=== PATIENT | female | born 1985 | race Caucasian/White ===

== ENCOUNTER → 2017-02-04 | Outpatient (CLI) | payer OTHER ==
[~2017-02-04] MED LIST: ANUS2.5C2 PR; DOCU10CA PO; MILKSUS PO; MOTR200T44 PO; MULTTAB20 PO; PRENTAB7 PO; TYLE167L PO
[2017-02-04 15:34] LABS: FREE T4 0.98 NG/DL (0.76-1.46)
== END ==
LOC: M SMT 09:58
PROVIDERS: ATTEND Obstetrics & Gynecology
DX: N92.0 Excessive and frequent menstruation with regular cycle (principal)

== ENCOUNTER → 2017-10-29 | Outpatient (CLI) | payer OTHER ==
[2017-10-29 11:55] LABS: HEMATOCRIT 38.5 % (36.0-47.0); HEMOGLOBIN 13.1 g/dl (12.0-16.0); MEAN CORPUSCULAR HEMOGLOBIN 31.5 pg (27.0-33.0); MEAN CORPUSCULAR VOLUME 92.5 fl (80.0-96.0); PLATELET COUNT, AUTOMATED 215 10^3/uL (150-450); RED BLOOD COUNT 4.16 10^6/uL (4.00-5.40); RED CELL DISTRIBUTION WIDTH 12.6 % (11.5-14.5); WHITE BLOOD COUNT 4.6 10^3/uL (4.0-10.0)
[2017-10-29 12:29] LABS: ALBUMIN 4.1 GM/DL (3.2-5.2); ALBUMIN/GLOBULIN RATIO 1.08 (1.00-1.93); ALKALINE PHOSPHATASE 72 U/L (45-117); ALT/SGPT 20 U/L (12-78); ANION GAP 6 MEQ/L (8-16); AST/SGOT 16 U/L (7-37); BILIRUBIN,TOTAL 0.5 MG/DL (0.2-1.0); BLOOD UREA NITROGEN 12 MG/DL (7-18); CALCIUM LEVEL 8.7 MG/DL (8.5-10.1); CARBON DIOXIDE LEVEL 28 MEQ/L (21-32); CHLORIDE LEVEL 109 MEQ/L (98-107); CHOLESTEROL LEVEL 156 MG/DL (<200); CHOLESTEROL RISK RATIO 2.689 (<5); CREATININE FOR GFR 0.71 MG/DL (0.55-1.30); GLOMERULAR FILTRATION RATE > 60.0 (>60); GLUCOSE, FASTING 91 MG/DL (70-100); HDL CHOLESTEROL 58 MG/DL (>40); IRON (FE) 67 UG/DL (50-170); LDL CHOLESTEROL 90.8 MG/DL (<100); NON-HDL-C 98 MG/DL; PERCENT SATURATION 16.8 % (13.2-45.0); POTASSIUM SERUM 4.2 MEQ/L (3.5-5.1); SODIUM LEVEL 143 MEQ/L (136-145); THYROID STIMULATING HORMONE 0.741 uIU/ML (0.358-3.740); TOTAL IRON BINDING CAPACITY 398 UG/DL (250-450); TOTAL PROTEIN 7.9 GM/DL (6.4-8.2); TRIGLYCERIDES LEVEL 36 MG/DL (<150)
[2017-10-29 12:41] LABS: TOTAL 25(OH) VITAMIN D 38.5 NG/ML (30.0-100.0)
== END ==
LOC: M LAB 11:13
DX: D64.9 Anemia, unspecified (principal); R53.83 Other fatigue; E03.9 Hypothyroidism, unspecified

== ENCOUNTER → 2018-08-23 | Outpatient (REF) | payer OTHER ==
[~2018-08-23] MED LIST changes: +MILK120011 PO; -MILKSUS PO
== END ==
LOC: M LAB REF 10:41
PROVIDERS: ATTEND Physician Assistant
DX: J02.9 Acute pharyngitis, unspecified (principal)

== ENCOUNTER → 2018-09-14 | Outpatient (REF) | payer OTHER | LOC: M SFHCLERA 15:32 | PROVIDERS: ATTEND Physician Assistant | DX: J02.9 Acute pharyngitis, unspecified (principal) ==

== ENCOUNTER → 2018-09-29 | Outpatient (REF) | payer OTHER ==
[2018-10-02 14:17] LABS: HPV HYBRID CAPTURE II Negative (Negative)
== END ==
LOC: M LAB REF 18:12
PROVIDERS: ATTEND Obstetrics & Gynecology
DX: Z12.4 Encounter for screening for malignant neoplasm of cervix (principal); Z11.51 Encounter for screening for human papillomavirus (HPV)
CPT/HCPCS: 87624; G0123

== ENCOUNTER → 2019-06-18 | Outpatient (REF) | payer OTHER ==
[2019-06-21 15:26] LABS: CHLAMYDIA DNA AMPLIFICATION NEGATIVE (NEGATIVE); GC DNA AMPLIFICATION NEGATIVE (NEGATIVE)
== END ==
LOC: M LAB REF 13:34
PROVIDERS: ATTEND Obstetrics & Gynecology
DX: Z11.3 Encounter for screening for infections with a predominantly sexual mode of transmission (principal)

== ENCOUNTER → 2020-06-02 | Outpatient (REF) | payer OTHER | LOC: M PLALAB 16:32 | PROVIDERS: ATTEND Obstetrics & Gynecology | DX: Z12.4 Encounter for screening for malignant neoplasm of cervix (principal) | CPT/HCPCS: 88305; G0123 ==

== ENCOUNTER → 2020-08-02 | Outpatient (CLI) | payer OTHER ==
--- NOTE | 2020-08-02 08:30 | REP ---
INDICATION: N93.9 AUB COMPARISON: None. TECHNIQUE: Transabdominal pelvic ultrasound followed by transvaginal examination for better evaluation of the endometrium and adnexa with color Doppler evaluation of the ovaries. FINDINGS: Bladder is unremarkable and measures approximately 12.8 x 12.8 x 7.6 cm. Heterogeneous retroverted uterus measures 8.3 x 4.4 x 6.0 cm. The endometrial complex measures 7.7 mm thickness excluding a small amount of endocervical fluid. No discrete uterine or endometrial abnormalities are appreciated. Bilateral ovaries are normal in vascularity without evidence for torsion. Right ovary measures 5.0 x 1.7 x 2.1 cm and includes 1.8 x 1.5 x 1.3 cm presumed physiologic cyst/dominant follicle; R I = 0.42. Left ovary measures 2.3 x 1.8 x 1.7 cm; R I = 0.53. Trace pelvic free fluid is nonspecific and likely physiologic. IMPRESSION: Heterogeneous retroverted uterus with small amount of endocervical fluid and suspected dominant follicle in the right ovary likely physiologic and related to menstrual cycle <Electronically signed by Aman Mas > 08/02/20 [id number]
== END ==
LOC: M WHC 06:59
PROVIDERS: ATTEND Obstetrics & Gynecology
DX: N93.9 Abnormal uterine and vaginal bleeding, unspecified (principal)

== ENCOUNTER → 2021-02-13 | Outpatient (REF) | payer OTHER | LOC: M LAB REF 11:10 → M WUC 11:10 | PROVIDERS: ATTEND Physician Assistant | DX: M54.5 Low back pain (principal) ==

== ENCOUNTER → 2021-03-08 | Outpatient (REF) | payer OTHER | LOC: M LAB REF 10:54 | PROVIDERS: ATTEND Physician Assistant | DX: J00 Acute nasopharyngitis [common cold] (principal) ==

== ENCOUNTER → 2021-11-06 | Outpatient (REF) | payer OTHER | LOC: M SFHCWAGY 09:53 | PROVIDERS: ATTEND Obstetrics & Gynecology | DX: Z01.419 Encounter for gynecological examination (general) (routine) without abnormal findings (principal); Z77.9 Other contact with and (suspected) exposures hazardous to health; Z12.4 Encounter for screening for malignant neoplasm of cervix ==

== ENCOUNTER → 2021-12-10 | Outpatient (REF) | payer OTHER | LOC: M WUC 09:28 | PROVIDERS: ATTEND Physician Assistant | DX: J02.9 Acute pharyngitis, unspecified (principal) ==

== ENCOUNTER → 2022-02-20 | Outpatient (CLI) | payer OTHER | LOC: M LABSMTC 09:37 | PROVIDERS: ATTEND Anesthesiology | DX: Z01.818 Encounter for other preprocedural examination (principal); Z11.52 Encounter for screening for COVID-19 ==

== ENCOUNTER 2022-02-25 06:08 | Day surgery (SDC) | payer OTHER ==
[~2022-02-25] VITALS: Ht 165.1 cm; Wt 69.4 kg
[~2022-02-25 06:08] MED LIST changes: +ceFAZolin SOD 2 GM in IV 1 EA IV ONE
[2022-02-25] MEDS ORDERED: LR 1,000 ML IV SCH ×2 (06:15→09:55)
[2022-02-25 06:36] LABS: HEMATOCRIT 37.1 % (36.0-47.0); HEMOGLOBIN 12.7 g/dl (12.0-15.5); MEAN CORPUSCULAR HEMOGLOBIN 32.3 pg (27.0-33.0); MEAN CORPUSCULAR HGB CONC 34.2 g/dl (32.0-36.5); MEAN CORPUSCULAR VOLUME 94.4 fl (80.0-96.0); PLATELET COUNT, AUTOMATED 255 10^3/uL (150-450); RED BLOOD COUNT 3.93 10^6/uL (4.00-5.40); WHITE BLOOD COUNT 5.9 10^3/uL (4.0-10.0)
[2022-02-25] MEDS ORDERED: METHYLENE BLUE 0.5% (5MG/ML) 10 ML AMP (PROVAYBLUE) As Ordered ONE (07:14)
[2022-02-25] MEDS ORDERED: BUPIVACAINE HCL 0.25% 30ML VIAL As Ordered ONE (07:14)
[2022-02-25] MEDS ORDERED: LIDOCAINE 2% INJ 100 MG/5 ML SYRINGE As Ordered ONE (07:59)
[2022-02-25] MEDS ORDERED: ACETAMINOPHEN 1000MG 100ML IV BTL (OFIRMEV) (J0131 PER 10MG) As Ordered ONE (07:59)
[2022-02-25] MEDS ORDERED: fentaNYL 100 MCG/2 ML INJECTION As Ordered ONE ×2 (07:59→08:10)
[2022-02-25] MEDS ORDERED: ROCURONIUM BROMIDE 50 MG/5 ML VIAL As Ordered ONE ×2 (07:59→09:02)
[2022-02-25] MEDS ORDERED: dexameTHASONE 4 MG/ML 1ML VIAL (J1100 PER 1MG) As Ordered ONE (07:59)
[2022-02-25] MEDS ORDERED: MIDAZOLAM INJ 2MG/2ML VIAL (J2250 PER 1MG) As Ordered ONE (07:59)
[2022-02-25] MEDS ORDERED: propofoL 200 MG/20 ML VIAL As Ordered ONE (07:59)
[2022-02-25] MEDS ORDERED: ONDANSETRON 4MG 2ML VIAL As Ordered ONE (07:59)
[2022-02-25] MEDS ORDERED: SUGAMMADEX SODIUM 500 MG/5 ML VIAL (BRIDION) As Ordered ONE (08:08)
[2022-02-25] MEDS ORDERED: KETOROLAC 60MG 2ML VIAL As Ordered ONE (09:40)
[2022-02-25] MEDS ORDERED: fentaNYL 100 MCG/2 ML INJECTION IV PRN (09:55)
[2022-02-25] MEDS ORDERED: ONDANSETRON 4MG 2ML VIAL IV PRN (09:55)
[2022-02-25] MEDS ORDERED: HYDROMORPHONE HCL 0.5 MG/ 0.5 ML SYRINGE (J1170 PER 1) IV PRN (09:55)
[2022-02-25] MEDS ORDERED: PERCOCET 5MG/325MG TAB PO PRN (10:40)
[2022-02-25] MEDS: oxyCODONE 5MG TAB PO PRN ×2 (10:58→12:16)
[2022-02-25] MEDS ORDERED: oxyCODONE 5MG TAB As Ordered ONE (12:14)
[2022-02-25 14:00] VITALS: BP 117/63
[2022-02-25] MEDS ORDERED: KETOROLAC 30 MG/ML 1ML VIAL IV SCH (16:00)
== END 2022-02-25 14:40 | disposition home or self-care (01) ==
LOC: M SDC 06:08
PROVIDERS: ATTEND Obstetrics & Gynecology
DX: N93.9 Abnormal uterine and vaginal bleeding, unspecified (principal); N84.0 Polyp of corpus uteri; N39.3 Stress incontinence (female) (male)
CPT/HCPCS: 36415; 57288; 58571; 85027; 86850; 86900; 86901; 88307; C1771; J0131; J0690; J1100; J1885; J2250; J2405; J3010; Q9968; S2900

== ENCOUNTER → 2022-03-05 | Outpatient (REF) | payer OTHER ==
[~2022-03-05] MED LIST changes: -ceFAZolin SOD 2 GM in IV 1 EA IV ONE
== END ==
LOC: M WUC 20:31
PROVIDERS: ATTEND Physician Assistant
DX: J02.9 Acute pharyngitis, unspecified (principal); R50.9 Fever, unspecified; Z20.828 Contact with and (suspected) exposure to other viral communicable diseases

== ENCOUNTER 2022-04-18 22:48 | Day surgery (SDC) | payer OTHER ==
[~2022-04-18] VITALS: Ht 165.1 cm; Wt 75.0 kg
[2022-04-18] MEDS ORDERED: NS 1,000 ML IV ONE (23:15)
[2022-04-18] MEDS ORDERED: MORPHINE 4 MG/ML 1ML VIAL/SYRINGE IV ONE (23:15)
[2022-04-18] MEDS ORDERED: AMPICILLIN SOD/SULBACTAM SOD 3 GM in D5W MINI-BAG PLUS 100 ML IV ONE (23:50)
[2022-04-18] MEDS ORDERED: ONDANSETRON 4MG 2ML VIAL IV ONE (23:55)
[2022-04-18 23:58] LABS: BASO % 0.6 % (0.0-1.0); EOS # 0.2 10^3/uL (0.0-0.5); EOS % 2.2 % (0.0-3.0); HEMATOCRIT 33.5 % (36.0-47.0); HEMOGLOBIN 11.2 g/dl (12.0-15.5); LYMPH # 1.9 10^3/uL (1.5-5.0); LYMPH % 28.4 % (24.0-44.0); MEAN CORPUSCULAR HEMOGLOBIN 32.2 pg (27.0-33.0); MEAN CORPUSCULAR HGB CONC 33.4 g/dl (32.0-36.5); MEAN CORPUSCULAR VOLUME 96.3 fl (80.0-96.0); MONO # 0.4 10^3/uL (0.0-0.8); MONO % 5.6 % (2.0-8.0); NEUTROPHILS # 4.2 10^3/uL (1.5-8.5); NEUTROPHILS % 62.9 % (36.0-66.0); PLATELET COUNT, AUTOMATED 191 10^3/uL (150-450); RED BLOOD COUNT 3.48 10^6/uL (4.00-5.40); WHITE BLOOD COUNT 6.7 10^3/uL (4.0-10.0)
[2022-04-19] VITALS (7 sets, daily range): BP systolic 96–115; BP diastolic 55–64
[2022-04-19] MEDS ORDERED: ESTROGENS VAGINAL CREAM 30GM As Ordered ONE (00:05)
[2022-04-19] MEDS ORDERED: LIDOCAINE W/EPINEPHRINE 1% 20ML VIAL As Ordered ONE (00:05)
[2022-04-19] MEDS ORDERED: fentaNYL 100 MCG/2 ML INJECTION As Ordered ONE ×2 (00:19→01:04)
[2022-04-19] MEDS ORDERED: ROCURONIUM BROMIDE 50 MG/5 ML VIAL As Ordered ONE (00:20)
[2022-04-19] MEDS ORDERED: propofoL 200 MG/20 ML VIAL As Ordered ONE (00:20)
[2022-04-19] MEDS ORDERED: MIDAZOLAM INJ 2MG/2ML VIAL (J2250 PER 1MG) As Ordered ONE (00:20)
[2022-04-19] MEDS ORDERED: LIDOCAINE 2% 100MG/5ML SDV (FOR ANES.) As Ordered ONE (00:20)
[2022-04-19] MEDS ORDERED: ONDANSETRON 4MG 2ML VIAL As Ordered ONE (00:20)
[2022-04-19] MEDS ORDERED: dexameTHASONE 4 MG/ML 1ML VIAL (J1100 PER 1MG) As Ordered ONE (00:20)
[2022-04-19 00:26] LABS: RSV AMPLIFICATION NEGATIVE (NEGATIVE)
[2022-04-19] MEDS ORDERED: ACETAMINOPHEN 1000MG 100ML IV BTL (OFIRMEV) (J0131 PER 10MG) As Ordered ONE (00:53)
[2022-04-19] MEDS ORDERED: KETOROLAC 60MG 2ML VIAL As Ordered ONE ×2 (00:55→00:58)
[2022-04-19] MEDS ORDERED: SUGAMMADEX SODIUM 500 MG/5 ML VIAL (BRIDION) As Ordered ONE (00:55)
[2022-04-19] MEDS ORDERED: SUCCINYLCHOLINE 100 MG/5 ML SYRINGE (J0330) As Ordered ONE (01:04)
[2022-04-19] MEDS ORDERED: ePHEDrine SULFATE 25 MG/5 ML(5MG/ML) SYRINGE As Ordered ONE (01:06)
[2022-04-19] MEDS ORDERED: METOCLOPRAMIDE INJ 10MG/2ML VIAL (J2765 PER 1) As Ordered ONE (01:09)
[2022-04-19] MEDS ORDERED: METHYLENE BLUE 0.5% (5MG/ML) 10 ML AMP (PROVAYBLUE) As Ordered ONE (01:27)
[2022-04-19] MEDS ORDERED: LR 1,000 ML IV SCH ×2 (01:45→02:25)
[2022-04-19] MEDS ORDERED: PERCOCET 5MG/325MG TAB PO PRN (01:45)
[2022-04-19] MEDS ORDERED: ONDANSETRON 4MG 2ML VIAL IV PRN (01:45)
[2022-04-19] MEDS ORDERED: fentaNYL 100 MCG/2 ML INJECTION IV PRN (01:45)
[2022-04-19] MEDS ORDERED: MORPHINE 2 MG/ML 1ML VIAL IV PRN (01:45)
[2022-04-19] MEDS ORDERED: MORPHINE 10 MG/ML 1ML VIAL IV PRN (02:25)
[2022-04-19] MEDS: KETOROLAC 30 MG/ML 1ML VIAL IV SCH ×2 (03:00→14:20)
[2022-04-19] MEDS ORDERED: KETOROLAC 30 MG/ML 1ML VIAL As Ordered ONE (03:06)
[2022-04-19 08:30] LABS: ALBUMIN 3.3 GM/DL (3.2-5.2); ALT/SGPT 13 U/L (12-78); BILIRUBIN,TOTAL 0.4 MG/DL (0.2-1.0); BLOOD UREA NITROGEN 10 MG/DL (7-18); CALCIUM LEVEL 8.7 MG/DL (8.5-10.1); CARBON DIOXIDE LEVEL 25 MEQ/L (21-32); CHLORIDE LEVEL 108 MEQ/L (98-107); CREATININE FOR GFR 0.76 MG/DL (0.55-1.30); GLOMERULAR FILTRATION RATE > 60.0 (>60); GLUCOSE, FASTING 164 MG/DL (70-100); POTASSIUM SERUM 4.5 MEQ/L (3.5-5.1); SODIUM LEVEL 137 MEQ/L (136-145); TOTAL PROTEIN 6.5 GM/DL (6.4-8.2)
[2022-04-19] MEDS ORDERED: LevoFLOXacin IV 750 MG in IV 1 EA IV SCH (09:00)
[2022-04-19] MEDS ORDERED: metroNIDAZOLE 500 MG in IV 1 EA IV SCH (11:00)
[2022-04-19] MEDS ORDERED: SIMETHICONE 80MG CHEW TAB PO PRN (12:20)
[2022-04-19] MEDS ORDERED: SIMETHICONE 40MG/0.6ML DROPS 30ML PO SCH (13:00)
[2022-04-19] MEDS ORDERED: ACET-683 PO (15:00)
[2022-04-19] MEDS ORDERED: IBUP-1022 PO (15:00)
== END 2022-04-19 16:30 | disposition home or self-care (01) ==
LOC: M ED 22:48 → EDBD 22:48 → M SDC 23:50 → M OBS 04-19 03:06 → M SDC 04-19 16:30
PROVIDERS: ATTEND Obstetrics & Gynecology
DX: T81.32XA Disruption of internal operation (surgical) wound, not elsewhere classified, initial encounter (principal); Y81.3 Surgical instruments, materials and general- and plastic-surgery devices (including sutures) associated with adverse incidents
CPT/HCPCS: 13160; 36415; 80053; 85025; 86850; 86900; 86901; 87631; 96365; 96375; 96376; 99284; J0131; J0295; J0330; J1100; J1885; J1956; J2250; J2270; J2405; J2765; J3010; Q9968

== ENCOUNTER → 2022-08-22 | Outpatient (CLI) | payer OTHER ==
[~2022-08-22] MED LIST changes: +ACET-683 PO; +IBUP-1022 PO
== END ==
LOC: M WHC 12:57
PROVIDERS: ATTEND Obstetrics & Gynecology
DX: N63.0 Unspecified lump in unspecified breast (principal); N64.4 Mastodynia

== ENCOUNTER → 2022-09-03 | Outpatient (CLI) | payer OTHER | LOC: M WHC 08:08 | PROVIDERS: ATTEND Obstetrics & Gynecology | DX: N63.0 Unspecified lump in unspecified breast (principal); N64.4 Mastodynia ==

== ENCOUNTER → 2023-07-17 | Outpatient (CLI) | payer OTHER | LOC: M RAD 12:15 | PROVIDERS: ATTEND Physician Assistant Medical | DX: M54.2 Cervicalgia (principal) ==

== ENCOUNTER → 2023-07-17 | Outpatient (CLI) | payer OTHER ==
[2023-07-17 13:59] LABS: HEMATOCRIT 39.5 % (36.0-47.0); HEMOGLOBIN 13.5 g/dl (12.0-15.5); MEAN CORPUSCULAR HEMOGLOBIN 32.5 pg (27.0-33.0); MEAN CORPUSCULAR HGB CONC 34.2 g/dl (32.0-36.5); MEAN CORPUSCULAR VOLUME 95.2 fl (80.0-96.0); PLATELET COUNT, AUTOMATED 267 10^3/uL (150-450); RED BLOOD COUNT 4.15 10^6/uL (4.00-5.40); WHITE BLOOD COUNT 5.5 10^3/uL (4.0-10.0)
[2023-07-17 14:12] LABS: HEMOGLOBIN A1c 4.8 % (4.0-6.0)
[2023-07-17 14:24] LABS: CHOLESTEROL LEVEL 200 MG/DL (<200); CHOLESTEROL RISK RATIO 2.58 (<5); HDL CHOLESTEROL 77.5 MG/DL (>40); LDL CHOLESTEROL 111.9 MG/DL (<100); NON-HDL-C 122.5 MG/DL; TRIGLYCERIDES LEVEL 53 MG/DL (<150)
[2023-07-17 14:25] LABS: RHEUMATOID FACTOR QUANT < 3.5 IU/ML (<14); THYROID STIMULATING HORMONE 0.816 uIU/ML (0.55-4.78)
[2023-07-17 14:26] LABS: TOTAL 25(OH) VITAMIN D 31.2 NG/ML (20.0-100.0)
[2023-07-17 14:52] LABS: ERYTHROCYTE SEDIMENTATION RATE 14 mm/hr (0-20)
== END ==
LOC: M LAB 12:19
PROVIDERS: ATTEND Family Medicine
DX: D64.9 Anemia, unspecified (principal); R53.83 Other fatigue; E03.9 Hypothyroidism, unspecified

== ENCOUNTER → 2023-10-21 | Outpatient (CLI) | payer OTHER ==
[~2023-10-21] MED LIST changes: +HYDR-3363 PO; +PEPC1TAB5 PO
[2023-10-21 17:06] LABS: BLOOD UREA NITROGEN 18 MG/DL (9-23); CREATININE FOR GFR 0.67 MG/DL (0.55-1.30); GLOMERULAR FILTRATION RATE > 60.0 (>60)
== END ==
LOC: M LAB 16:17
PROVIDERS: ATTEND Physician Assistant
DX: G54.0 Brachial plexus disorders (principal)

== ENCOUNTER 2023-10-22 21:07 | Emergency (ER) | payer OTHER ==
[~2023-10-22] VITALS: Ht 165.1 cm; Wt 76.2 kg
[~2023-10-22 21:07] MED LIST changes: -HYDR-3363 PO; -PEPC1TAB5 PO
[2023-10-22 22:15] LABS: BASO % 0.5 % (0.0-1.0); EOS # 0.2 10^3/uL (0.0-0.5); EOS % 2.2 % (0.0-3.0); HEMATOCRIT 36.2 % (36.0-47.0); HEMOGLOBIN 12.9 g/dl (12.0-15.5); LYMPH # 3.1 10^3/uL (1.5-5.0); LYMPH % 40.8 % (24.0-44.0); MEAN CORPUSCULAR HEMOGLOBIN 33.7 pg (27.0-33.0); MEAN CORPUSCULAR HGB CONC 35.6 g/dl (32.0-36.5); MEAN CORPUSCULAR VOLUME 94.5 fl (80.0-96.0); MONO # 0.6 10^3/uL (0.0-0.8); MONO % 7.3 % (2.0-8.0); NEUTROPHILS # 3.7 10^3/uL (1.5-8.5); NEUTROPHILS % 49.1 % (36.0-66.0); PLATELET COUNT, AUTOMATED 211 10^3/uL (150-450); RED BLOOD COUNT 3.83 10^6/uL (4.00-5.40); WHITE BLOOD COUNT 7.6 10^3/uL (4.0-10.0)
[2023-10-22 22:47] LABS: CPK CREATINE PHOSPHOKINASE 63 U/L (34-145)
[2023-10-22 22:48] LABS: BLOOD UREA NITROGEN 16 MG/DL (9-23); CALCIUM LEVEL 7.5 MG/DL (8.5-10.1); CARBON DIOXIDE LEVEL 29 MMOL/L (20-31); CHLORIDE LEVEL 104 MMOL/L (98-107); CK-MB VALUE MASS < 1.0 NG/ML (<3.6); CREATININE FOR GFR 0.67 MG/DL (0.55-1.30); GLOMERULAR FILTRATION RATE > 60.0 (>60); GLUCOSE, FASTING 125 MG/DL (60-100); MB/CK RELATIVE INDEX 1.58 (< OR =4); POTASSIUM SERUM 4.3 MMOL/L (3.5-5.1); SODIUM LEVEL 136 MMOL/L (136-145)
[2023-10-22] MEDS ORDERED: ISOVUE-370 76% 100ML VIAL As Ordered ONE (23:10)
[2023-10-22 23:35] LABS: CK-MB VALUE MASS < 1.0 NG/ML (<3.6)
[2023-10-22 23:55] LABS: CPK CREATINE PHOSPHOKINASE 59 U/L (34-145); MB/CK RELATIVE INDEX 1.69 (< OR =4)
[2023-10-23] MEDS: NS 1,000 ML IV ONE (00:04)
[2023-10-23] MEDS: FAMOTIDINE 20MG/2ML VIAL IVP ONE (00:04)
[2023-10-23] MEDS ORDERED: HYDR-3363 PO (00:24)
[2023-10-23] MEDS ORDERED: PEPC1TAB5 PO (00:24)
[2023-10-23 00:53] VITALS: BP 114/76; TEMP 98; O2SAT 98
== END 2023-10-23 01:01 | disposition home or self-care (01) ==
LOC: M ED 21:07
DX: R07.9 Chest pain, unspecified (principal); K21.9 Gastro-esophageal reflux disease without esophagitis; F41.9 Anxiety disorder, unspecified; Z79.1 Long term (current) use of non-steroidal anti-inflammatories (NSAID); Z79.899 Other long term (current) drug therapy
CPT/HCPCS: 71045; 71275; 80048; 82550; 82553; 84484; 85025; 93005; 93041; 94760; 96361; 96374; 99285; Q9967; S0028

== ENCOUNTER → 2023-10-27 | Outpatient (CLI) | payer OTHER ==
[~2023-10-27] MED LIST changes: +HYDR-3363 PO; +ISOVUE-370 76% 100ML VIAL As Ordered ONE; +PEPC1TAB5 PO
== END ==
LOC: M RAD 16:28
PROVIDERS: ATTEND Physician Assistant
DX: G54.0 Brachial plexus disorders (principal); R20.0 Anesthesia of skin; M79.601 Pain in right arm
CPT/HCPCS: 73206; Q9967

== ENCOUNTER → 2024-02-23 | Outpatient (REF) | payer OTHER ==
[~2024-02-23] MED LIST changes: -ISOVUE-370 76% 100ML VIAL As Ordered ONE
== END ==
LOC: M LAB REF 12:20
PROVIDERS: ATTEND Student in an Organized Health Care Education/Training Program
DX: J02.9 Acute pharyngitis, unspecified (principal)

== ENCOUNTER → 2025-07-13 | Outpatient (REF) | payer OTHER ==
[~2025-07-13] MED LIST changes: -IBUP-1022 PO; +IBUP600T42 PO
[2025-07-13 15:20] LABS: IRON (FE) 59.0 UG/DL (50-170)
[2025-07-13 15:21] LABS: PERCENT SATURATION 17.8 % (13.2-45.0)
[2025-07-13 15:32] LABS: VITAMIN B12 LEVEL 340.0 PG/ML (211-911)
== END ==
LOC: M LAB REF 13:47
PROVIDERS: ATTEND Internal Medicine
DX: D64.9 Anemia, unspecified (principal)